=== PATIENT | female | born 1975 | race Caucasian/White ===

== ENCOUNTER 2020-11-21 10:01 | Emergency (ER) | payer OTHER ==
[~2020-11-21] VITALS: Ht 157.5 cm; Wt 66.8 kg
--- NOTE | 2020-11-21 10:24 | PHYS DOC ---
Adult General Chief Complaint Chief Complaint: HEADACHE HPI HPI Patient is a 45F with reported past medical history of migraines now presenting emergency department for 2 weeks of a headache. Patient states that she has a bandlike sensation from the top of her head radiating from the bilateral frontal region into the occipital region which been lasting for approximately 2 weeks. Patient states she normally has issues with migraines and has been getting Botox for her [place] states that [place] have been doing it differently and has not improved her symptoms. States that since this has initiated she has been having ongoing difficulty with photophobia and photophobia. Has been taking Tylenol for this without any improvement of her symptoms. Denies any numbness, weakness, vision changes. Review of Systems Review of Systems Constitutional: Denies fever or chills [] Eyes: Denies change in visual acuity, redness, or eye pain [] HENT: Denies nasal congestion or sore throat [] Respiratory: Denies cough or shortness of breath [] Cardiovascular: No additional information not addressed in HPI [] GI: Denies abdominal pain, nausea, vomiting, bloody stools or diarrhea [] : Denies dysuria or hematuria [] Musculoskeletal: Denies back pain or joint pain [] Integument: Denies rash or skin lesions [] Neurologic: Denies headache, focal weakness or sensory changes [] Endocrine: Denies polyuria or polydipsia [] All other systems were reviewed and found to be within normal limits, except as documented in this note. Current Medications Current Medications Current Medications Medications (Trade) Dose Ordered Sig/Doug Start Time Stop Time Status Last Admin Dose Admin Diphenhydramine HCl (Benadryl) 50 mg 1X ONCE 11/21/20 10:30 11/21/20 10:31 UNV Metoclopramide HCl (Reglan Vial) 10 mg 1X ONCE 11/21/20 10:30 11/21/20 10:31 UNV Sodium Chloride 1,000 ml @ 1,000 mls/hr 1X ONCE 11/21/20 10:30 11/21/20 11:29 UNV Allergies Allergies Allergies Coded Allergies Type Severity Reaction Last Updated Verified NSAIDS (Non-Steroidal Anti-Inflamma Allergy Unknown 11/21/20 Yes Penicillins Allergy Unknown 11/21/20 Yes diclofenac Allergy Unknown 11/21/20 Yes ketorolac Allergy Unknown 11/21/20 Yes Physical Exam Physical Exam Constitutional: Well developed, well nourished, no acute distress, non-toxic appearance. [] HENT: Normocephalic, atraumatic, bilateral external ears normal, oropharynx moist, no oral exudates, nose normal. [] Eyes: PERRLA, EOMI, conjunctiva normal, no discharge. [] Neck: Normal range of motion, no tenderness, supple, no stridor. [] Cardiovascular:Heart rate regular rhythm, no murmur [] Lungs & Thorax: Bilateral breath sounds clear to auscultation [] Abdomen: Bowel sounds normal, soft, no tenderness, no masses, no pulsatile masses. [] Skin: Warm, dry, no erythema, no rash. [] Back: No tenderness, no CVA tenderness. [] Extremities: No tenderness, no cyanosis, no clubbing, ROM intact, no edema. [] Neurologic: Alert and oriented X 3, normal motor function, normal sensory funct ion, no focal deficits noted. [] Psychologic: Affect normal, judgement normal, mood normal. [] EKG EKG [] Radiology/Procedures Radiology/Procedures [] Heart Score Risk Factors: Risk Factors: DM, Current or recent (<one month) smoker, HTN, HLP, family history of CAD, obesity. Risk Scores: Risk Factors: DM, Current or recent (<one month) smoker, HTN, HLP, family hi story of CAD, obesity. Course & Med Decision Making Course & Med Decision Making Pertinent Labs and Imaging studies reviewed. (See chart for details) 45F presenting to emergency department migraine headache. Patient is refusing Benadryl but will provide medications in attempt to fix this. Patient states that her symptoms have significantly improved and her pain is currently a 4 out of 10 after receiving morphine infusion. At this time the patient is requesting discharge home. Patient has plan to follow-up with her primary care physician next week. I spoken with the patient and her caregivers. I explained the patient's condition, diagnoses and treatment plan based on the information available to me at this time. I have answered the patient and her caregiver's questions and addressed any concerns. The patient and her caregivers have a good unde rstanding of patient's diagnosis, condition and treatment plan as can be expected at this point. Vital signs have been stable. Patient's condition is stable and appropriate for discharge from the emergency department. Patient will pursue further outpatient evaluation with primary care physician or other designated or consulting physician as outlined in the discharge instructions. The patient and/or caregivers are agreeable to this plan of care and follow-up instructions have been explained in detail. The patient and/or caregivers have received these instructions in written form and have expressed an understanding of the discharge instructions. The patient and/or caregivers are aware that any significant change of condition or worsening of symptoms andrew uld prompt immediate return to this or the closest emergency department or call to 911. Ivelisse Disclaimer Dragon Disclaimer This electronic medical record was generated, in whole or in part, using a voice recognition dictation system. Departure Departure: Impression: Primary Impression: Migraine Disposition: 01 DC HOME SELF CARE/HOMELESS Condition: GOOD Referrals: AMIRA IBRAHIM (PCP) Patient Instructions: Migraine Headache Additional Instructions: EMERGENCY DEPARTMENT GENERAL DISCHARGE INSTRUCTIONS Thank you for coming to [facility] Emergency Department (ED) today and trusting us with you care. We trust that you had a positive experience in our Emergency Department. If you wish to speak to the department management, you may call the Director at [phone]. YOUR FOLLOW UP INSTRUCTIONS ARE FOLLOWS: 1. Do you have a private Doctor? If you do not have a private doctor, please ask for a resource list of physicians or clinics that may be able to assist you with follow up care. 2. The Emergency Physicain has interpreted your x-rays. The X-Ray specialist will also review them. If there is a change in the findings, you will be notified in 48 hours when at all possible. 3. A lab test or culture has been done, your results will be reviewed and you will be notified if you need a change in treatment. ADDITIONAL INSTRUCTIONS AND INFORMATION: 1. Your care today has been supervised by a physician who is specially trained in emergency care. Many problems require more than one evaluation for a complete diagnosis and treatment. We recommend that you schedule your follow up appointment as recommended to ensure complete treatment of you illness or injury. If you are unable to obtain follow up care and continue to have a problem, or if your condition worsens, we recommend that you return to the ED. 2. We are not able to safely determine your condition over the phone nor are we able to give sound medical advice over the phone. For these safety reasons, if you call for medical advice we will ask you to come to the ED for further evaluation. 3. If you have any questions regarding these discharge instructions please call the ED at [phone]. SAFETY INFORMATION: In the interest of safety, wellness, and injury prevention; we encourage you to wear your sealbelt, if you smoke; quite smoking, and we encourage family to use a protective helmet for bicycling and other sporting events that present an increased risk for head injury. IF YOUR SYMPTOMS WORSEN OR NEW SYMPTOMS DEVELOP, OR YOU HAVE CONCERNS ABOUT YOUR CONDITION; OR IF YOUR CONDITION WORSENS WHILE YOU ARE WAITING FOR YOUR FOLLOW UP APPOINTMENT; EITHER CONTACT YOUR PRIMARY CARE DOCTOR, THE PHYSICIAN WHOSE NAME AND NUMBER YOU WERE GIVEN, OR RETURN TO THE ED IMMEDIATELY. Scripts Butalb/Acetaminophen/Caffeine ([id number] [id number]) 1 Each Capsule 1 EACH PO Q8HRS for headache for 10 Days, #30 CAP Prov: SREE ROGERS MD 11/21/20 SREE ROGERS MD Nov 21, 2020 10:24
[2020-11-21] MEDS ORDERED: diphenhydrAMINE 50 MG/ML VIAL IVP ONE (10:30)
[2020-11-21] MEDS ORDERED: IV NORMAL SALINE 1,000ML 1,000 ML IV ONE (10:30)
[2020-11-21] MEDS ORDERED: METOCLOPRAMIDE HCL 10 MG/2 ML VIAL. IVP ONE (10:30)
[2020-11-21] MEDS ORDERED: BUTALB/APAP/CAFEIN 50/325/40MG TABLET. PO ONE (11:30)
[2020-11-21] MEDS ORDERED: MORPHINE SULFATE 4 MG/ML DISP.SYRIN. IV ONE (11:30)
[2020-11-21 12:02] VITALS: BP 116/66
[2020-11-21] MEDS ORDERED: BUTA1CAP57 PO (12:21)
== END 2020-11-21 12:29 | disposition home or self-care (01) ==
LOC: ER 10:01
DX: G43.909 Migraine, unspecified, not intractable, without status migrainosus (principal); Z88.0 Allergy status to penicillin; Z88.8 Allergy status to other drugs, medicaments and biological substances; Z88.6 Allergy status to analgesic agent
CPT/HCPCS: 96361; 96374; 96375; 99285; J2270; J2765; J7030

== ENCOUNTER 2021-01-01 14:35 | Emergency (ER) | payer OTHER ==
[~2021-01-01] VITALS: Ht 157.5 cm; Wt 66.1 kg
[~2021-01-01 14:35] MED LIST: BUTA1CAP57 PO
--- NOTE | 2021-01-01 15:08 | EKG ---
[address] [address] Test Date: 2021-01-01 Test Time: 14:42:45 Pat Name: MARTY DREW Department: Room: Gender: F Crm Administrator: JASBIR : [id number] Requested By: JENNIFER RIVERA Order Number: [id number] Reading MD: Measurements Intervals [place] Rate: 83 P: 43 [place]: 128 QRS: 26 QRSD: 84 T: 15 QT: 352 QTc: 414 Interpretive Statements SINUS RHYTHM NORMAL ECG RI6.02 No previous ECG available for comparison
--- NOTE | 2021-01-01 15:09 | PHYS DOC ---
Past History Past Medical History: Anxiety, Bipolar, GERD, Migraines (JENNIFER RIVERA APRN) Past Surgical History: Appendectomy, Cholecystectomy, Hysterectomy, Other Additional Past Surgical Histo: GASTRIC SLEEVE, SIGMOID COLON, LEFT ANKLE (JENNIFER RIVERA APRN) Alcohol Use: Rarely (JENNIFER RIVERA APRN) General Adult EDM: Chief Complaint: FLU SYMPTOM HPI: HPI: Patient is a 45-year-old female who presents with headache, nonproductive cough fatigue and fever since Saturday. Patient states she works at [employer]. and was exposed to 3 people to a week prior that were tested positive for Covid. Patient is reporting shortness of breath with exertion. Denies taking any medication today for pain. She has history of anxiety, bipolar, migraines. Denies nausea/vomiting/diarrhea. (JENNIFER RIVERA APRN) Review of Systems: Review of Systems: Constitutional: Denies fever or chills Eyes: Denies change in visual acuity HENT: Denies nasal congestion or sore throat Respiratory: Reports nonproductive cough and shortness of breath Cardiovascular: Reports chest wall pain GI: Denies abdominal pain, nausea, vomiting, bloody stools or diarrhea : Denies dysuria Musculoskeletal: Denies back pain or joint pain Integument: Denies rash Neurologic: Denies headache, focal weakness or sensory changes Endocrine: Denies polyuria or polydipsia Lymphatic: Denies swollen glands Psychiatric: Denies depression or anxiety (JENNIFER RIVERA APRN) Allergies: Allergies: Allergies Coded Allergies Type Severity Reaction Last Updated Verified NSAIDS (Non-Steroidal Anti-Inflamma Allergy Unknown 11/21/20 Yes Penicillins Allergy Unknown 11/21/20 Yes diclofenac Allergy Unknown 11/21/20 Yes ketorolac Allergy Unknown 11/21/20 Yes (JENNIFER RIVERA APRN) Physical Exam: PE: Constitutional: Well developed, well nourished, no acute distress, non-toxic appearance. [] HENT: Normocephalic, atraumatic, bilateral external ears normal, oropharynx moist, no oral exudates, nose normal. [] Eyes: PERRLA, EOMI, conjunctiva normal, no discharge. [] Neck: Normal range of motion, no tenderness, supple, no stridor. [] Cardiovascular:Heart rate regular rhythm, no murmur [] Lungs & Thorax: Bilateral breath sounds clear to auscultation [] Abdomen: Bowel sounds normal, soft, no tenderness, no masses, no pulsatile masses. [] Skin: Warm, dry, no erythema, no rash. [] Back: No tenderness, no CVA tenderness. [] Extremities: No tenderness, no cyanosis, no clubbing, ROM intact, no edema. [] Neurologic: Alert and oriented X 3, normal motor function, normal sensory function, no focal deficits noted. [] Psychologic: Affect normal, judgement normal, mood normal. [] (JENNIFER RIVERA APRN) Current Patient Data: Vital Signs: Vital Signs Date Time Temp Pulse Resp B/P (MAP) Pulse Ox O2 Delivery O2 Flow Rate FiO2 01/01/21 14:35 98.8 75 16 106/80 (89) 98 Room Air 18.0 (JENNIFER RIVERA APRN) EKG: EKG: Sinus rhythm, heart rate 83 bpm. [] (JENNIFER RIVERA APRN) Radiology/Procedures: Radiology/Procedures: []AP chest. HISTORY: Short of breath AP view was taken of the chest. Lungs are clear. Heart is normal in size. There is no effusion. IMPRESSION: 1. No acute chest disease. Electronically signed by: Guido Avery MD (01/01/2021 4:19 PM) [id number] (JENNIFER RIVERA APRN) Heart Score: C/O Chest Pain: Yes HEART Score for Chest Pain: HEART Score for Chest Pain Response (Comments) Value History Slighlty/Non-Suspicious 0 ECG Normal 0 Age >45 - < 65 1 Risk Factors No Risk Factors 0 Troponin < Normal Limit 0 Total 1 Risk Factors: Risk Factors: DM, Current or recent (<one month) smoker, HTN, HLP, family h istory of CAD, obesity. Risk Scores: Score 0 - 3: 2.5% MACE over next 6 weeks - Discharge Home Score 4 - 6: 20.3% MACE over next 6 weeks - Admit for Clinical Observation Score 7 - 10: 72.7% MACE over next 6 weeks - Early Invasive Strategies (JENNIFER RIVERA APRN) Course & Med Decision Making: Course & Med Decision Making Pertinent Labs and Imaging studies reviewed. (See chart for details) [] Patient presenting with flulike symptoms. Fever, cough, fatigue, shortness of breath. Patient also complaining of a headache and body aches. Tested patient for influenza which was negative. Patient also tested for Covid which will get results in a few days. Patient does report three people she works with have been positive last week for Covid. 500 mg of Tylenol given to treat headache and body aches. Chest x-ray was negative for any acute abnormalities. I ordered a D-dimer also due to patient complaining of shortness of breath. D- dimer was negative. Explained to patient that she needed to self quarantine and that we would update her with test results in 2 days. Patient to take Tylenol at home for fever and body aches. Patient most likely has Covid due to her recent exposure and symptoms. Instructed patient to return to emergency room with worsening symptoms or concerns. Patient is hemodynamically stable in the emergency room. (JENNIFER RIVERA APRN) Course & Med Decision Making I oversaw on the above date of service of this patient and discussed the care with the PHYSICIAN GYNECOLOGIST. I agree with the findings, plan of care, and disposition as documented. Electronically signed, Samina Vaz DO (SAMINA VAZ DO) Ivelisse Disclaimer: Ivelisse Disclaimer: This electronic medical record was generated, in whole or in part, using a voice recognition dictation system. (JENNIFER RIVERA APRN) Departure Departure: Impression: Primary Impression: Viral syndrome Disposition: 01 DC HOME SELF CARE/HOMELESS Condition: STABLE Referrals: SIMA KEY MD (PCP) Patient Instructions: Viral Syndrome Additional Instructions: You were seen in the emergency room today for fatigue, fever, shortness of breath. Your chest x-ray was negative for any acute abnormalities. All of your lab work was unremarkable. We have also tested you for Covid which will not receive results for 2 days. Please self quarantine until you are contacted with results. We also tested you for influenza which was negative. You can take Tylenol at home for fever and body aches. Please return to the emergency room with worsening symptoms or concerns. EMERGENCY DEPARTMENT GENERAL DISCHARGE INSTRUCTIONS Thank you for coming to [facility] Emergency Department (ED) today and trusting us with you care. We trust that you had a positivie experience in our Emergency Department. If you wish to speak to the department management, you may call the director at [phone]. YOUR FOLLOW UP INSTRUCTIONS ARE FOLLOWS: 1. Do you have a private Doctor? If you do not have a private doctor, please ask for a resource list of physicians or clinics that may be able to assist you with follow up care. 2. The Emergency Physician has interpreted your x-rays. The X-Ray specialist will also review them. If there is a change in the findings, you will be notified in 48 hours when at all possible. 3. A lab test or culture has been done, your results will be reviewed and you will be notified if you need a change in treatment. ADDITIONAL INSTRUCTIONS AND INFORMATION: 1. Your care today has been supervised by a physician who is specially trained in emergency care. Many problems require more than one evaluation for a complete diagnosis and treatment. We recommend that you schedule your follow up appointment as recommended to ensure complete treatment of you illness or injury. If you are unable to obtain follow up care and continue to have a problem, or if your condition worsens, we recommend that you return to the ED. 2. We are not able to safely determine your condition over the phone nor are we able to give sound medical advice over the phone. For these safety reasons, if you call for medical advice we will ask you to come to the ED for further evaluation. 3. If you have any questions regarding these discharge instructions please call the ED at [phone]. SAFETY INFORMATION: In the interest of safety, wellness, and injury prevention; we encourage you to wear your sealbelt, if you smoke; quite smoking, and we encourage family to use a protective helmet for bicycling and other sporting events that present an increased risk for head injury. IF YOUR SYMPTOMS WORSEN OR NEW SYMPTOMS DEVELOP, OR YOU HAVE CONCERNS ABOUT YOUR CONDITION; OR IF YOUR CONDITION WORSENS WHILE YOU ARE WAITING FOR YOUR FOLLOW UP APPOINTMENT; EITHER CONTACT YOUR PRIMARY CARE DOCTOR, THE PHYSICIAN WHOSE NAME AND NUMBER YOU WERE GIVEN, OR RETURN TO THE ED IMMEDIATELY. JENNIFER RIVERA APRN Jan 01, 2021 15:09 SAMINA VAZ DO Jan 05, 2021 07:55
[2021-01-01] MEDS ORDERED: ACETAMINOPHEN 500 MG TABLET PO ONE (15:15)
[2021-01-01 15:48] LABS: CALCIUM 8.6 mg/dL (8.5-10.1); CREATININE 1.1 mg/dL (0.6-1.0); GFR 53.7; POTASSIUM 3.7 mmol/L (3.5-5.1)
[2021-01-01 15:51] LABS: BASO % 0 % (0-3); EOS # 0.1 x10^3/uL (0.0-0.7); EOS % 1 % (0-3); HEMATOCRIT 34.2 % (36.0-47.0); HEMOGLOBIN 10.7 g/dL (12.0-15.5); LYMPH # 1.6 x10^3/uL (1.0-4.8); LYMPH % 28 % (24-48); MEAN CORPUSCULAR HEMOGLOBIN 28 pg (25-35); MEAN CORPUSCULAR HGB CONC 31 g/dL (31-37); MEAN CORPUSCULAR VOLUME 88 fL (79-100); MONO # 0.5 x10^3/uL (0.0-1.1); MONO % 9 % (0-9); NEUT # 3.7 x10^3uL (1.8-7.7); NEUT % 63 % (31-73); PLATELET COUNT 346 x10^3/uL (140-400); RED BLOOD COUNT 3.89 x10^6/uL (3.50-5.40); RED CELL DISTRIBUTION WIDTH 16.8 % (11.5-14.5)
[2021-01-01 15:53] LABS: INFLUENZA A PATIENT NEGATIVE (NEGATIVE); INFLUENZA B PATIENT NEGATIVE (NEGATIVE)
[2021-01-01 15:55] LABS: BACTERIA,URINE 0 /HPF (0-FEW); BILIRUBIN,URINE NEG (NEG); CLARITY,URINE CLEAR; COLOR,URINE YELLOW; GLUCOSE,URINE NEG (NEG); NITRITE,URINE NEG (NEG); RBC,URINE 0 /HPF (0-2); SQUAMOUS EPITHELIAL CELL,UR MANY /LPF; UROBILINOGEN,URINE 0.2 mg/dL (0.2 mg/dL); WBC,URINE 0 /HPF (0-4)
[2021-01-01 16:10] VITALS: BP 116/78
--- NOTE | 2021-01-01 16:21 | RAD ---
AP chest. HISTORY: Short of breath AP view was taken of the chest. Lungs are clear. Heart is normal in size. There is no effusion. IMPRESSION: 1. No acute chest disease. Electronically signed by: Guido Avery MD (01/01/2021 4:19 PM) [id number]
== END 2021-01-01 16:40 | disposition home or self-care (01) ==
LOC: ER 14:35
DX: B34.9 Viral infection, unspecified (principal); Z20.822 Contact with and (suspected) exposure to COVID-19; F41.9 Anxiety disorder, unspecified; F31.9 Bipolar disorder, unspecified; K21.9 Gastro-esophageal reflux disease without esophagitis; G43.909 Migraine, unspecified, not intractable, without status migrainosus; Z88.0 Allergy status to penicillin; Z88.6 Allergy status to analgesic agent; Z88.8 Allergy status to other drugs, medicaments and biological substances
CPT/HCPCS: 36415; 71045; 80048; 81001; 85025; 85379; 87804; 93005; 99285; C9803; U0003; U0005

== ENCOUNTER → 2021-01-27 | Outpatient (CLI) | payer OTHER ==
[2021-01-01 16:10] VITALS: BP 116/78
--- NOTE | 2021-01-27 10:27 | RAD ---
EXAM: Left shoulder, 3 views. HISTORY: Pain. COMPARISON: None. FINDINGS: 3 views of the left shoulder are obtained. There is no fracture, dislocation or subluxation . IMPRESSION: No acute osseous finding. Electronically signed by: Nichole Seymour MD (01/27/2021 10:25 AM) [id number]
== END ==
LOC: RAD 10:00
PROVIDERS: ATTEND Physician Assistant
DX: M25.512 Pain in left shoulder (principal)
CPT/HCPCS: 73030

== ENCOUNTER 2021-02-11 19:17 | Emergency (ER) | payer OTHER ==
[~2021-02-11] VITALS: Ht 157.5 cm; Wt 66.5 kg
--- NOTE | 2021-02-11 19:40 | PHYS DOC ---
Past History Past Medical History: Anxiety, Bipolar, GERD, Migraines Past Surgical History: Appendectomy, Cholecystectomy, Hysterectomy, Other Additional Past Surgical Histo: GASTRIC SLEEVE, SIGMOID COLON, LEFT ANKLE Alcohol Use: Rarely Adult General Chief Complaint Chief Complaint: LOWER BACK PAIN OR INJURY HPI HPI Patient is a 45-year-old female who presents with a chief complaint of low back pain. States that 5 days ago she was walking through her house with a little laundry, slipped and fell backwards onto her back. States she has low back pain in that area, both midline and paraspinal, 6 out of 10, dull and achy in nature and some bruising. Denies any other injuries. States he is able to walk but it causes her discomfort. Denies any numbness/weakness/tingling. Denies any urinary or stool problems and is making urine and stool normally for her with no blood in either. States she had not taken anything for the pain. Review of Systems Review of Systems Review of systems otherwise unremarkable except noted in HPI Allergies Allergies Allergies Coded Allergies Type Severity Reaction Last Updated Verified NSAIDS (Non-Steroidal Anti-Inflamma Allergy Unknown 11/21/20 Yes Penicillins Allergy Unknown 11/21/20 Yes diclofenac Allergy Unknown 11/21/20 Yes ketorolac Allergy Unknown 11/21/20 Yes Physical Exam Physical Exam Constitutional: Well developed, well nourished, no acute distress, non-toxic appearance. [] HENT: Normocephalic, atraumatic, bilateral external ears normal, oropharynx moist, no oral exudates, nose normal. [] Neck: Normal range of motion, no tenderness, Cardiovascular:Heart rate regular rhythm, no murmur [] Lungs & Thorax: No respiratory distress Abdomen: soft, no tenderness, no masses, no pulsatile masses. [] Skin: Warm, dry, no erythema, no rash, contusion on mid lower back. [] Back: Mild midline lumbar tenderness as well as paraspinal muscle tenderness and apparent spasm with some contusion Extremities: No tenderness, no cyanosis, no clubbing, ROM intact, no edema. [] Neurologic: Alert and oriented X 3, normal motor function, normal sensory function, able to ambulate and sit without issue, no focal deficits noted. [] Psychologic: Affect normal, judgement normal, mood normal. [] EKG EKG [] Radiology/Procedures Radiology/Procedures [] FINDINGS: Alignment of the lumbar spine appears normal. Vertebral body heights are maintained. Acute fractures identified. Transverse processes are intact. Posterior elements are intact. Abdominal aorta is normal in caliber with mild calcified plaque. Visualized retroperitoneum is otherwise normal. There is a 3 mm nonobstructing calculus in inferior pole the right kidney. L2-L3: Disc is normal in configuration. Mild facet arthropathy. No neuroforaminal or spinal canal stenosis. L3-L4: Disc is normal in configuration. Mild facet arthropathy. No neuroforaminal or spinal canal stenosis. L4-L5: Mild disc bulge. Mild facet arthropathy. No neuroforaminal or spinal canal stenosis. L5-S1: Mild disc bulge. Moderate to severe right and moderate left facet arthropathy. No neuroforaminal or spinal canal stenosis. IMPRESSION: No acute fracture or malalignment. 3 mm nonobstructing calculus in inferior pole the right kidney. Electronically signed by: Marychuy Pacheco MD (02/11/2021 8:09 PM) [facility] Heart Score C/O Chest Pain: No Risk Factors: Risk Factors: DM, Current or recent (<one month) smoker, HTN, HLP, family history of CAD, obesity. Risk Scores: Risk Factors: DM, Current or recent (<one month) smoker, HTN, HLP, family history of CAD, obesity. Course & Med Decision Making Course & Med Decision Making Patient is a 45-year-old female who presents with low back pain and bruising after a fall 5 days ago Vital signs not concerning. Physical exam noted above. Alert and oriented no acute distress with no focal neurologic deficits. Not on blood thinners. Given pain and spasm medication in the ED. Imaging with probable arthritis/degenerative disc disease. Discussed all findin gs with patient advised to follow-up with primary care physician as soon as you can to discuss further evaluation and treatment plan. Given pain regimen for home. Advised to follow-up first thing Saturday morning with primary care physician. Gave return precautions to the ED. Patient grateful, verbalized understanding and agreed with plan of discharge. [] Dragon Disclaimer Dragon Disclaimer This electronic medical record was generated, in whole or in part, using a voice recognition dictation system. Departure Departure: Disposition: HOME / SELF CARE / HOMELESS Condition: GOOD Referrals: SIMA KEY MD (PCP) Patient Instructions: Back Pain, Adult, Fall Prevention and Home Safety Additional Instructions: Please read all the attached information very carefully. You can begin a Tylenol, ibuprofen, ice and stretching regimen as discussed. Please do not exceed 3000 mg of Tylenol daily. Please do not take ibuprofen if you cannot tolerate. Please take your pain medicine and muscle relaxers as prescribed and do not drink, drive or work on these. Please call your primary care physician first thing Saturday morning to discuss ED visit and set up a follow-up as soon as possible to continue further management. Please come back to the ED with new or concerning symptoms as discussed. Scripts Hydrocodone Bit/Acetaminophen (HYDROCODONE-APAP 5-325 ) 1 Each Tablet 1 TAB PO PRN Q6HRS PRN for back pain for 3 Days, #12 TAB 0 Refills Prov: SIDDHARTHA FORD MD 02/11/21 SIDDHARTHA FORD MD February 11, 2021 19:39
[2021-02-11] MEDS ORDERED: diazePAM 5 MG TABLET. PO ONE (19:45)
[2021-02-11] MEDS ORDERED: oxyCODONE/APAP 5/325 1 TAB TABLET PO ONE (19:45)
--- NOTE | 2021-02-11 20:11 | RAD ---
PQRS Compliance Statement: One or more of the following individualized dose reduction techniques were utilized for this examinat ion: 1. Automated exposure control 2. Adjustment of the mA and/or kV according to patient size 3. Use of iterative reconstruction technique CT LUMBAR SPINE WO 02/11/2021 7:41 PM Indication: Fall COMPARISON: None available. TECHNIQUE: Multiple axial CT images of the lumbar spine were obtained without intravenous contrast. C oronal and sagittal reformats are provided. FINDINGS: Alignment of the lumbar spine appears normal. Vertebral body heights are maintained. Acute fractures identified. Transverse processes are intact. Posterior elements are intact. Abdominal aorta is normal in caliber with mild calcified plaque. Visualized retroperitoneum is otherwise normal. There is a 3 mm nonobstructing calculus in inferior pole the right kidney. L2-L3: Disc is normal in configuration. Mild facet arthropathy. No neuroforaminal or spinal canal homero nosis. L3-L4: Disc is normal in configuration. Mild facet arthropathy. No neuroforaminal or spinal canal homero nosis. L4-L5: Mild disc bulge. Mild facet arthropathy. No neuroforaminal or spinal canal stenosis. L5-S1: Mild disc bulge. Moderate to severe right and moderate left facet arthropathy. No neuroforamin al or spinal canal stenosis. IMPRESSION: No acute fracture or malalignment. 3 mm nonobstructing calculus in inferior pole the right kidney. Electronically signed by: Marychuy Pacheco MD (02/11/2021 8:09 PM) [facility]
[2021-02-11] MEDS ORDERED: HYDR-2155 PO (20:25)
[2021-02-11] MEDS ORDERED: DIAZ5TAB4 PO (20:28)
[2021-02-11 20:35] VITALS: BP 114/79
== END 2021-02-11 20:35 | disposition home or self-care (01) ==
LOC: ER 19:17
DX: S30.0XXA Contusion of lower back and pelvis, initial encounter (principal); K21.9 Gastro-esophageal reflux disease without esophagitis; Z90.49 Acquired absence of other specified parts of digestive tract; Z90.710 Acquired absence of both cervix and uterus; W18.00XA Striking against unspecified object with subsequent fall, initial encounter; Y93.01 Activity, walking, marching and hiking; Y92.89 Other specified places as the place of occurrence of the external cause; Y99.8 Other external cause status
CPT/HCPCS: 72131; 99284-25

== ENCOUNTER 2021-03-20 00:13 | Emergency (ER) | payer OTHER ==
[~2021-03-20] VITALS: Ht 157.5 cm; Wt 65.8 kg
[~2021-03-20 00:13] MED LIST changes: +DIAZ5TAB4 PO; +HYDR-2155 PO
--- NOTE | 2021-03-20 00:17 | PHYS DOC ---
Past History Past Medical History: Anxiety, Bipolar, Depression, GERD, Migraines Past Surgical History: Appendectomy, Cholecystectomy, Hysterectomy, Other Additional Past Surgical Histo: GASTRIC SLEEVE, SIGMOID COLON, LEFT ANKLE Alcohol Use: None General Adult HPI: HPI: ".. I am having break through migraine.. I am out of Furocet... [place] no available apt. until March 31.. I have had migraines ever since I was 12 years old.. And about the only thing that works are the botulism or Botox injections.... And usually towards the end of the quarter the Botox injections start to wear off and I take Fioricet...." Patient is a 45 year old female dependent who presents with migraine headache. Patient states is her typical migraine presentation with photophobia, sensitivity to sound, and strong odors. No history of trauma. No history of fever. No history of travel. Recently moved to [facility] in the last 6 [place] Patient states they are s ometimes seasonal and regional sensitivities felt to be related to allergies. Does have marked exacerbations when they travel [place] on the way back home. Patient denies any history immunosuppression. 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 Patient's prior CTs that have all been normal per patient. Patient has past medical history of chronic low back pain anxiety, bipolar, GERD, chronic migraines, appendectomy, cholecystectomy, hysterectomy, gastric sleeve, sigmoid resection, left ankle fracture repair, and arthritis. Review of Systems: Review of Systems: Constitutional: Denies fever or chills Eyes: Denies change in visual acuity HENT: Denies nasal congestion or sore throat Respiratory: Denies cough or shortness of breath Cardiovascular: Denies chest pain or edema GI: Denies abdominal pain, vomiting, bloody stools or diarrhea. Complains of nausea : Denies dysuria Musculoskeletal: Denies back pain or joint pain Integument: Denies rash Neurologic: Complains of headache. Denies, focal weakness or sensory changes Endocrine: Denies polyuria or polydipsia Lymphatic: Denies swollen glands Psychiatric: Denies depression or anxiety Family History: Family History: Noncontributory presentation Current Medications: Current Meds: See nursing for home meds Allergies: Allergies: Allergies Coded Allergies Type Severity Reaction Last Updated Verified NSAIDS (Non-Steroidal Anti-Inflamma Allergy Unknown 11/21/20 Yes Penicillins Allergy Unknown 11/21/20 Yes diclofenac Allergy Unknown 11/21/20 Yes ketorolac Allergy Unknown 11/21/20 Yes Physical Exam: PE: Constitutional: Moderate acute distress, non-toxic appearance. [] HENT: Normocephalic, atraumatic, bilateral external ears normal, oropharynx moist, no oral exudates, nose normal. No temporal artery tenderness. Does have scalp tenderness. Eyes: PERRLA, EOMI, conjunctiva normal, no discharge. Glasses. Does have photophobia. Fundus generally benign Neck: Normal range of motion, no tenderness, supple, no stridor. [] Cardiovascular:Heart rate regular rhythm, no murmur [] Lungs & Thorax: Bilateral breath sounds equal apex on auscultation [] Abdomen: Bowel sounds normal, soft, no tenderness, no masses, no pulsatile victorino s. Old surgery scars. Skin: Warm, dry, no erythema, no rash. [] Back: No tenderness, no CVA tenderness. [] Extremities: No tenderness, no cyanosis, no clubbing, ROM intact, no edema. [] Neurologic: Alert and oriented X 3, normal motor function, normal sensory function, no focal deficits noted. DTRs +2 patella and brachial. Patient amatory without problems. No drift. It Desktop Support Technician equal. Right-hand dominant. Psychologic: Affect anxious, judgement normal, mood normal. [] EKG: EKG: [] Radiology/Procedures: Radiology/Procedures: Declined CT [] Heart Score: C/O Chest Pain: N/A Risk Factors: Risk Factors: DM, Current or recent (<one month) smoker, HTN, HLP, family history of CAD, obesity. Risk Scores: Score 0 - 3: 2.5% MACE over next 6 weeks - Discharge Home Score 4 - 6: 20.3% MACE over next 6 weeks - Admit for Clinical Observation Score 7 - 10: 72.7% MACE over next 6 weeks - Early Invasive Strategies Course & Med Decision Making: Course & Med Decision Making Pertinent Labs and Imaging studies reviewed. (See chart for details) Patient defers labs or x-rays. Wish to be treated clinically. Patient defers spinal tap. Risk and benefits discussed with limited work-up or evaluation. Patient only requesting a refill of her Percocet until she can follow-up at [facility].. Appears that currently not an Pyxis. Patient has been able to take Percocet in the past for exacerbations. Encourage patient to have another attempt at bio tox injection since they did seem to help previously with her recurrent migraines. Follow-up primary care. Return if any concerns. May have Zofran 8 mg with 4 times a day for nausea and vomiting. Impression: 1. Migraine [] Dragon Disclaimer: Dragalok Disclaimer: This electronic medical record was generated, in whole or in part, using a voice recognition dictation system. Departure Departure: Referrals: SIMA KEY MD (PCP) Scripts Ondansetron Hcl (ZOFRAN) 4 Mg Tablet 8 MG PO QIDPRN PRN for NAUSEA/VOMITING, #30 TAB Prov: DEVYN SPANN MD 03/20/21 Oxycodone Hcl/Acetaminophen (PERCOCET 5-325 MG TABLET ) 1 Each Tablet 1 TAB PO PRN Q6HRS PRN for PAIN, #30 TAB Prov: DEVYN SPANN MD 03/20/21 DEVYN SPANN MD Mar 20, 2021 00:17
[2021-03-20] MEDS ORDERED: ONDA4TAB7 PO (00:58)
[2021-03-20] MEDS ORDERED: OXYC1TAB15 PO (00:58)
[2021-03-20 01:05] VITALS: BP 121/71
[2021-03-20] MEDS ORDERED: ONDANSETRON ODT 4 MG TAB.RAPDIS PO ONE (01:30)
[2021-03-20] MEDS ORDERED: oxyCODONE/APAP 5/325 1 TAB TABLET PO ONE (01:30)
== END 2021-03-20 01:29 | disposition home or self-care (01) ==
LOC: ER 00:13
DX: G43.909 Migraine, unspecified, not intractable, without status migrainosus (principal); F41.9 Anxiety disorder, unspecified; F31.9 Bipolar disorder, unspecified; K21.9 Gastro-esophageal reflux disease without esophagitis; G89.29 Other chronic pain; Z88.0 Allergy status to penicillin; Z88.8 Allergy status to other drugs, medicaments and biological substances
CPT/HCPCS: 99283; Q0162